=== PATIENT | female | born 1980 | race African-American/Black ===

== ENCOUNTER 2016-02-29 18:44 | Emergency (ER) | payer SELFPAY ==
[~2016-02-29] VITALS: Ht 167.6 cm; Wt 62.1 kg
[~2016-02-29 18:44] MED LIST: AMOXICILLIN500 M1 PO; METRONIDAZOLE500 MG ORAL
[2016-02-29 19:15] VITALS: BP 130/62
[2016-02-29] MEDS ORDERED: Lidocaine 1% MPF 10mg/ml 5ml IM ONE (20:00)
[2016-02-29] MEDS ORDERED: IBUPROFEN600 MG ORAL (21:19)
[2016-02-29 21:54] VITALS: BP 129/86
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
== END 2016-02-29 21:54 | disposition home or self-care (01) ==
LOC: EMR 19:44
DX: S62.617A Displaced fracture of proximal phalanx of left little finger, initial encounter for closed fracture (principal); S66.39 Other injury of extensor muscle, fascia and tendon of other and unspecified finger at wrist and hand level; W18.39XA Other fall on same level, initial encounter; Y92.9 Unspecified place or not applicable; Y99.8 Other external cause status
CPT/HCPCS: 29280; 99284